=== PATIENT | male | born 1995 | race Caucasian/White ===

== ENCOUNTER 2017-06-09 13:05 | Emergency (ER) | payer SELFPAY ==
[~2017-06-09] VITALS: Ht 175.3 cm; Wt 73.0 kg
[2017-06-09 13:05] VITALS: BP_SYST 132
--- NOTE | 2017-06-09 13:05 | NUR ---
Patient triaged and placed in waiting room. VSS and patient appears in no acute distress at this time. Accompanied by SELF, awaiting available bed, and MD notified of need for MSE.
--- NOTE | 2017-06-09 13:50 | NUR ---
EVALUATED BY LOLA PEGUERO IN TRIAGE ROOM.
--- NOTE | 2017-06-09 14:09 | NUR ---
Patient given written and verbal discharge instructions and verbalizes understanding. ER EMERGENCY COMMUNICATIONS DISPATCHER discussed with patient the results and treatment provided. Patient in stable condition. ID arm band removed. RX of prilosec, tylenol, bentyl, zofran given. Patient educated on pain management and to follow up with PMD. Pain Scale 0/10. Opportunity for questions provided and answered.
[2017-06-09 14:13] VITALS: BP_SYST 132
== END 2017-06-09 14:13 | disposition home or self-care (01) ==
LOC: SED 13:05
DX: A08.4 Viral intestinal infection, unspecified (principal); K21.9 Gastro-esophageal reflux disease without esophagitis; R03.0 Elevated blood-pressure reading, without diagnosis of hypertension; Z90.49 Acquired absence of other specified parts of digestive tract
CPT/HCPCS: 93005; 99283

== ENCOUNTER 2017-06-13 16:49 | Emergency (ER) | payer BC ==
[~2017-06-13] VITALS: Ht 175.3 cm; Wt 72.6 kg
[2017-06-13 16:50] VITALS: BP_SYST 139
[2017-06-13 20:35] VITALS: BP_SYST 135
== END 2017-06-13 20:36 | disposition home or self-care (01) ==
LOC: SED 16:49
DX: I31.9 Disease of pericardium, unspecified (principal); F41.9 Anxiety disorder, unspecified; R03.0 Elevated blood-pressure reading, without diagnosis of hypertension; Z87.891 Personal history of nicotine dependence
CPT/HCPCS: 93005; 99284

== ENCOUNTER 2017-07-21 00:41 | Emergency (ER) | payer BC ==
[~2017-07-21] VITALS: Ht 175.3 cm; Wt 73.5 kg
[2017-07-21 00:56] VITALS: BP_SYST 149
--- NOTE | 2017-07-21 02:14 | NUR ---
Placed in room 02. Side rails up. Report given to KRISTINE Saab.
--- NOTE | 2017-07-21 02:15 | NUR ---
Patient AAOx4, ambulatory. Patient states having pain to left side of neck with current pain scale 8/10 at this time; patient states pain has a stinging sensation. Patient states pain radiates to left shoulder. Patient states pain has been intermittent for "a while", but pain worsened this evening. Patient denies any mechanism of injury. Patient denies any other complaints.
--- NOTE | 2017-07-21 02:34 | NUR ---
ER Dr. Ocampo at bedside examining patient.
[2017-07-21 03:31] VITALS: BP_SYST 140
--- NOTE | 2017-07-21 03:31 | NUR ---
Patient given written and verbal discharge instructions and verbalizes understanding. ER MD discussed with patient the results and treatment provided. Patient in stable condition. ID arm band removed. Rx of ranitidine and given. Patient educated on pain management and to follow up with PMD. Pain Scale 0/10. Opportunity for questions provided and answered.
== END 2017-07-21 03:31 | disposition home or self-care (01) ==
LOC: SED 00:41
DX: K21.0 Gastro-esophageal reflux disease with esophagitis (principal)
CPT/HCPCS: 99282